=== PATIENT | male | born 1995 | race Caucasian/White ===

== ENCOUNTER 2018-04-11 23:36 | Observation (INO) | payer OTHER ==
--- NOTE | 2018-04-12 00:09 | ER Document Report ---
ED Medical Screen (RME) - General Chief Complaint: Possible Overdose Stated Complaint: ACCIDENTAL OVERDOSE Time Seen by Provider: 04/12/18 00:03 Notes: Patient presents for accidental overdose on oxycodone. 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 He states that he had been prescribed 30 mg oxycodone's approximately 3 years ago. Due to the pain he has been experiencing he states that he took a quarter of a pill earlier tonight and states that it helped with his back pain but not completely so approximately between 10 and 1030 he had taken half of a 30 mg pill. His significant other states that after he took it approximately 10 minutes had elapsed she walked back into the room he was slumped over in the chair with his eyes rolled back of his head and was hicks colored and wheezing. Her mother begin CPR with chest compressions and assisted breathing. Once EMS came they provided him 2 mg of Narcan and he became awake and oriented. He states that he has mild chest tenderness and states that he has been coughing up some blood and mucus when he awoke. Denies any medical problems does not take any medications on a daily basis. He denies trying to hurt himself and adamantly states he does not take narcotics on a daily basis and does not like taking medications. Of note, he is unsure whether the medication that he takes is extended release or not. I have greeted and performed a rapid initial assessment of this patient. A comprehensive ED assessment and evaluation of the patient, analysis of test results and completion of the medical decision making process will be conducted by additional ED providers. PHYSICAL EXAMINATION: GENERAL: Well-appearing, well-nourished and in no acute distress. HEAD: Atraumatic, normocephalic. EYES: Pupils equal round extraocular movements intact, conjunctiva are normal. ENT: Nares patent NECK: Normal range of motion LUNGS: No respiratory distress Musculoskeletal: Normal range of motion, mild TTP R anterior chest wall, no crepitus NEUROLOGICAL: Normal speech, normal gait. PSYCH: Normal mood, normal affect. SKIN: Warm, Dry, normal turgor, no rashes or lesions noted. - Related Data Allergies/Adverse Reactions: No Known Allergies Allergy (Verified 04/11/18 23:39) Physical Exam - Vital signs Vitals: Temp Pulse Resp BP Pulse Ox 98.6 F 108 H 24 H 136/72 H 93 04/11/18 23:44 04/11/18 23:44 04/11/18 23:44 04/11/18 23:44 04/11/18 23:44 Course - Vital Signs Vital signs: Temp Pulse Resp BP Pulse Ox 98.6 F 108 H 24 H 136/72 H 93 04/11/18 23:44 04/11/18 23:44 04/11/18 23:44 04/11/18 23:44 04/11/18 23:44
--- NOTE | 2018-04-12 00:56 | RADIOLOGY REPORT (SQ) ---
EXAM DESCRIPTION: XR CHEST 2 VIEWS COMPLETED DATE/TME: 04/12/2018 00:18 CLINICAL HISTORY: 22 years Male, bloody sputum, s/p chest compressions COMPARISON: None. FINDINGS: Adequate lung volume, mild/moderate mixed interstitial and airspace opacity, normal cardiac silhouette, and intact bony thorax. IMPRESSION: Moderate mixed interstitial and airpace opacities. Differential diagnosis includes pulmonary edema, multifocal pneumonia, and chronic interstitial lung disease.
--- NOTE | 2018-04-12 01:06 | ER Document Report ---
ED General - General Chief Complaint: Possible Overdose Stated Complaint: ACCIDENTAL OVERDOSE Time Seen by Provider: 04/12/18 00:03 Notes: Patient is a 22-year-old male who presents with complaint of accidental opiate overdose. Patient says he has some chronic back pain. He says usually does not take opiates. He had some opiates of the lower from X in the long time ago. He had hurt his back about 2 and half years ago. Recently he has been having "heavy stuff at work is back's been hurting him and therefore he decided to take 1 of his oxycodone. The oxycodone 30 mg tablets. He says he initially took a quarter of a pill and he continued to hurt and therefore he took half a pill. After this he became apneic and stopped breathing and paramedics were called and they gave him Narcan. He then came to the hospital. Says he has some mild shortness of breath. He said he spit up a small amount of blood. No vomiting of blood. He did vomit twice without any bloody emesis. No abdominal pain. No chest pain. No weakness or numbness into his legs other than some mild numbness that he had into his toes when he first woke up but that since resolved. No loss of bowel control. No urinary retention. - Related Data Allergies/Adverse Reactions: No Known Allergies Allergy (Verified 04/11/18 23:39) Past Medical History - Social History Smoking Status: Unknown if Ever Smoked Frequency of alcohol use: None Drug Abuse: None Family History: Reviewed & Not Pertinent Review of Systems - Review of Systems Notes: My Normal Review Basic REVIEW OF SYSTEMS: CONSTITUTIONAL : Denies fever, chills, or sweats. Denies recent illness. CARDIOVASCULAR: Denies chest pain. RESPIRATORY: Became apneic GASTROINTESTINAL: Denies abdominal pain. Some vomiting after Narcan MUSCULOSKELETAL: Denies neck or back pain or joint pain or swelling. SKIN: Denies rash or skin lesions. HEMATOLOGIC : Denies easy bruising or bleeding. NEUROLOGICAL: Denies altered mental status or loss of consciousness. Denies headache. Denies weakness or paralysis or loss of use of either side. Denies problems with gait or speech. Denies sensory or motor loss. ALL OTHER SYSTEMS REVIEWED AND NEGATIVE. Physical Exam - Vital signs Vitals: Temp Pulse Resp BP Pulse Ox 98.6 F 108 H 24 H 136/72 H 93 08/18/18 23:44 04/11/18 23:44 04/11/18 23:44 04/11/18 23:44 04/11/18 23:44 - Notes Notes: General Appearance: Well nourished, alert, cooperative, no acute distress, no obvious discomfort. Vitals: reviewed, See vital signs table. Head: no swelling or tenderness to the head Eyes: PERRL, EOMI, Conjuctiva clear Mouth: No decreasd moisture Lungs: No wheezing, No rales, No rhonci, No accessory muscle use, good air exchange bilaterally. Heart: Normal rate, Regular rythm, No murmur, no rub Back: Mild thoracic paraspinal tenderness to palpation around level T5-T7. Abdomen: Normal BS, soft, No rigidity, No abdominal tenderness, No guarding, no rebound, no abdominal masses, no organomegaly Extremities: strength 5/5 in all extremities, good pulses in all extremities, no swelling or tenderness in the extremities, no edema. Skin: warm, dry, appropriate color, no rash Neuro: speech clear, oriented x 3, normal affect, responds appropriately to questions. Distal sensation intact. Patient has good strength with plantar dorsiflexion in both feet. He is able lift both legs off the bed against gravity without any difficulty. Course - Re-evaluation Re-evalutation: 04/12/18 01:06 Patient's chest x-ray does show some signs of pulmonary edema. I therefore the patient observed. His oxygen saturation currently is 95% on room air. 04/12/18 02:22 Patient is a 2 saturations when is awake around 92-94%. When these asleep he did start to desaturate some. He does easily arouse. His pupils are still normal. I will place him on some oxygen. I did this into his lungs again and I do not hear significant rales despite there being some pulmonary edema on the chest x-ray. I will keep him on nasal cannula. I am awaiting hear back from the hospitalist problems. 04/12/18 06:[address] Charles who agreed to admit the patient. Dictation of this chart was performed using voice recognition software; therefore, there may be some unintended grammatical errors. - Vital Signs Vital signs: Temp Pulse Resp BP Pulse Ox 98.5 F 83 20 131/67 H 98 04/12/18 05:45 04/12/18 05:45 04/12/18 05:45 04/12/18 05:45 04/12/18 05:45 - Laboratory Result Diagrams: 04/12/18 05:40 04/12/18 01:05 Laboratory results interpreted by me: 04/12/18 01:05 WBC 15.7 H Seg Neutrophils % 86.3 H Lymphocytes % 8.5 L Absolute Neutrophils 13.5 H Discharge - Discharge Clinical Impression: Pulmonary vascular congestion Opiate overdose Qualifiers: Encounter type: initial encounter Injury intent: accidental or unintentional Qualified Code(s): T40.601A - Poisoning by unspecified narcotics, accidental ( unintentional), initial encounter Condition: Stable Disposition: ADMITTED OBSERVATION Unit Admitted: Telemetry
[2018-04-12 01:14] LABS: ABSOLUTE LYMPHOCYTES (AUTO) 1.3 10^3/uL (0.5-4.7); ABSOLUTE MONOCYTES (AUTO) 0.8 10^3/uL (0.1-1.4); ABSOLUTE NEUT (AUTO) 13.5 10^3/uL (1.7-8.2); BASOPHILS % (AUTO) 0.2 % (0-2); EOSINOPHILS % (AUTO) 0.1 % (0-6); HEMATOCRIT 42.6 % (37.9-51.0); LYMPHOCYTES % (AUTO) 8.5 % (13-45); MEAN CORPUSCULAR HGB CONC 35.2 g/dL (32.0-36.0); MEAN CORPUSCULAR VOLUME 88 fl (80-97); MONOCYTES % (AUTO) 4.9 % (3-13); PLATELET COUNT 205 10^3/uL (150-450); RED BLOOD COUNT 4.84 10^6/uL (4.35-5.55); SEGMENTED NEUTROPHILS % (AUTO) 86.3 % (42-78); TOTAL CELLS COUNTED % (AUTO) 100 %; WHITE BLOOD COUNT 15.7 10^3/uL (4.0-10.5)
[2018-04-12 01:27] LABS: ANION GAP 11 (5-19); BLOOD UREA NITROGEN 14 mg/dL (7-20); CALCIUM 9.4 mg/dL (8.4-10.2); CARBON DIOXIDE 26 mmol/L (22-30); CHLORIDE 102 mmol/L (98-107); GLUCOSE 99 mg/dL (75-110); POTASSIUM 4.2 mmol/L (3.6-5.0); SODIUM 139.4 mmol/L (137-145)
[2018-04-12] MEDS ORDERED: ACETAMINOPHEN 325 MG TABLET PO PRN (02:30)
[2018-04-12] MEDS ORDERED: IPRATROPIUM/ALBUTEROL 0.5-2.5 MG/3 ML AMPUL NEB PRN (02:30)
[2018-04-12] MEDS ORDERED: KETOROLAC TROMETHAMINE INJ/PF 30 MG/1 ML SDV IV PRN (02:33)
--- NOTE | 2018-04-12 05:14 | PDOC H&P ---
History of Present Illness Admission Date/PCP: 04/12/18 02:45 Patient complains of: Accidental overdose History of Present Illness: SHIRA ZAMBRANO is a 22 year old male with past medical history of chronic back pain who presents following an acute exacerbation of his back pain prompting him to take an oxycodone from previous remote prescription. Patient admits to consuming half a tablet resulting in altered mental status and respiratory depression, EMS was called receiving Narcan with resolution of symptoms however in the emergency room he has developed several episodes of hypoxia requiring oxygen concerning for pulmonary edema. Patient otherwise denies recreational drug use or medication use on a regular basis. He denies chest pain palpitations nausea vomiting. He denies previous episode. Past Medical History Medical History: None Social History Information Source: Patient Smoking Status: Current Some Day Smoker Frequency of Alcohol Use: Social Drugs: None - Advance Directive Resuscitation Status: Full Code Family History Family History: Hypertension Parental Family History Reviewed: Yes Children Family History Reviewed: Yes Sibling(s) Family History Reviewed.: Yes Medication/Allergy Allergies/Adverse Reactions: No Known Allergies Allergy (Verified 04/11/18 23:39) Review of Systems Constitutional: ABSENT: chills, fever(s), headache(s), weight gain, weight loss Eyes: ABSENT: visual disturbances Ears: ABSENT: hearing changes Cardiovascular: ABSENT: chest pain, dyspnea on exertion, edema, orthropnea, palpitations Respiratory: ABSENT: cough, hemoptysis Gastrointestinal: ABSENT: abdominal pain, constipation, diarrhea, hematemesis, hematochezia, nausea, vomiting Genitourinary: ABSENT: dysuria, hematuria Musculoskeletal: ABSENT: joint swelling Integumentary: ABSENT: rash, wounds Neurological: ABSENT: abnormal gait, abnormal speech, confusion, dizziness, focal weakness, syncope Psychiatric: ABSENT: anxiety, depression, homidical ideation, suicidal ideation Endocrine: ABSENT: cold intolerance, heat intolerance, polydipsia, polyuria Hematologic/Lymphatic: ABSENT: easy bleeding, easy bruising Physical Exam Vital Signs: Temp Pulse Resp BP Pulse Ox 98.6 F 108 H 18 113/58 L 96 04/11/18 23:44 04/11/18 23:44 04/12/18 03:01 04/12/18 03:01 04/12/18 03:01 General appearance: PRESENT: no acute distress, cooperative, well-developed, well-nourished. ABSENT: disheveled Head exam: PRESENT: atraumatic, normocephalic Eye exam: PRESENT: conjunctiva pink, EOMI, PERRLA. ABSENT: scleral icterus Ear exam: PRESENT: normal external ear exam Mouth exam: PRESENT: moist, tongue midline Neck exam: ABSENT: carotid bruit, JVD, lymphadenopathy, thyromegaly Respiratory exam: PRESENT: crackles, tachypnea. ABSENT: rales, rhonchi, wheezes Cardiovascular exam: PRESENT: RRR. ABSENT: diastolic murmur, rubs, systolic murmur Pulses: PRESENT: normal dorsalis pedis pul Vascular exam: PRESENT: normal capillary refill GI/Abdominal exam: PRESENT: normal bowel sounds, soft. ABSENT: distended, guarding, mass, organolmegaly, rebound, tenderness Rectal exam: PRESENT: deferred Extremities exam: PRESENT: full ROM. ABSENT: calf tenderness, clubbing, pedal edema Neurological exam: PRESENT: alert, awake, oriented to person, oriented to place , oriented to time, oriented to situation, CN II-XII grossly intact. ABSENT: motor sensory deficit Psychiatric exam: PRESENT: appropriate affect, normal mood. ABSENT: homicidal ideation, suicidal ideation Skin exam: PRESENT: dry, intact, warm. ABSENT: cyanosis, rash Results Impressions: Chest X-Ray 04/12/18 00:18 IMPRESSION: Moderate mixed interstitial and airpace opacities. Differential diagnosis includes pulmonary edema, multifocal pneumonia, and chronic interstitial lung disease. Assessment & Plan - Diagnosis (1) Opiate overdose Qualifiers: Encounter type: initial encounter Injury intent: accidental or unintentional Qualified Code(s): T40.601A - Poisoning by unspecified narcotics , accidental (unintentional), initial encounter Is this a current diagnosis for this admission?: Yes Plan: Accidental overdose without intention for self-harm, education and supportive care (2) Pulmonary vascular congestion Is this a current diagnosis for this admission?: Yes Plan: Likely secondary to Narcan reversal of opiate resulting in pulmonary edema. Supportive care oxygen as needed BiPAP - Time Time Spent: 30 to 50 Minutes - Inpatient Certification Medical Necessity: Need Close Monitoring Due to Risk of Patient Decompensation
[2018-04-12 05:54] LABS: ABSOLUTE LYMPHOCYTES (AUTO) 1.7 10^3/uL (0.5-4.7); ABSOLUTE MONOCYTES (AUTO) 0.8 10^3/uL (0.1-1.4); ABSOLUTE NEUT (AUTO) 10.1 10^3/uL (1.7-8.2); BASOPHILS % (AUTO) 0.3 % (0-2); EOSINOPHILS % (AUTO) 0.2 % (0-6); HEMATOCRIT 40.6 % (37.9-51.0); HEMOGLOBIN 14.5 g/dL (13.5-17.0); LYMPHOCYTES % (AUTO) 13.3 % (13-45); MEAN CORPUSCULAR HEMOGLOBIN 31.3 pg (27.0-33.4); MEAN CORPUSCULAR HGB CONC 35.6 g/dL (32.0-36.0); MEAN CORPUSCULAR VOLUME 88 fl (80-97); MONOCYTES % (AUTO) 6.2 % (3-13); PLATELET COUNT 204 10^3/uL (150-450); RED BLOOD COUNT 4.61 10^6/uL (4.35-5.55); RED CELL DISTRIBUTION WIDTH 14.3 % (11.5-14.0); TOTAL CELLS COUNTED % (AUTO) 100 %; WHITE BLOOD COUNT 12.7 10^3/uL (4.0-10.5)
[2018-04-12 06:11] LABS: URINE AMPHETAMINES SCREEN NEGATIVE; URINE BARBITURATES SCREEN NEGATIVE; URINE BENZODIAZEPINES SCREEN NEGATIVE; URINE COCAINE SCREEN NEGATIVE; URINE MARIJUANA (THC) SCREEN NEGATIVE; URINE METHADONE SCREEN NEGATIVE; URINE PHENCYCLIDINE SCREEN NEGATIVE
[2018-04-12] MEDS: HEPARIN SOD (PORCINE) 5,000 UNIT/ML 1 ML SYRINGE SUBCUT SCH ×3 (06:34→21:59)
--- NOTE | 2018-04-12 17:07 | Progress Note ---
Provider Note Provider Note: Patient admitted early this morning. Please see initial H&P for full assessment and plan. I did go and see patient on rounds this morning. He tells me that during his EMS ride he did cough up some blood which was bright red in color. I went ahead and ordered a CT of the chest to rule out any PE. Otherwise patient is doing well and wants to be discharged. I told him that let us look at the CTA of the chest and if that looks good and he may be discharged later this afternoon.
--- NOTE | 2018-04-12 17:15 | RADIOLOGY REPORT (SQ) ---
EXAM DESCRIPTION: CTA CHEST COMPLETED DATE/TIME: 04/12/2018 1:07 pm REASON FOR STUDY: hemopysis COMPARISON: None. TECHNIQUE: CT scan of the chest performed using helical scanning technique with dynamic intravenous contrast injection. Images reviewed with lung, soft tissue and bone windows. Reconstructed coronal and sagittal MPR images reviewed. Additional 3 dimensional post-processing performed to develop Maximal Intensity Projection images (RI P). All images stored on PACS. All CT scanners at this facility use dose modulation, iterative reconstruction, and/or weight based d osing when appropriate to reduce radiation dose to as low as reasonably achievable (ALARA). [facility]: Dose Right [facility]: CareDose [facility]: Dose Right [facility]: Teradose 4D [facility]: [employer] CONTRAST TYPE AND DOSE: contrast/concentration: Isovue 350.00 mg/ml; Total Contrast Delivered: 88.0 ml; Total Saline Delivered: 101.0 ml Contrast bolus optimized for the pulmonary arteries. Not diagnostic for the aorta. RENAL FUNCTION: None required. The patient is less than 50 years old. RADIATION DOSE: CT Rad equipment meets quality standard of care and radiation dose reduction techniq ues were employed. CTDIvol: 19.8 - 24.6 mGy. DLP: 971 mGy-cm. . LIMITATIONS: None. FINDINGS: LUNGS AND PLEURA: Diffuse ground-glass opacities in the upper lobes. No effusions. No pn eumothorax. AORTA AND GREAT VESSELS: No aneurysm. Contrast bolus not optimized for the aorta. HEART: No pericardial effusion. No significant coronary artery calcifications. PULMONARY ARTERIES: No emboli visualized in the main pulmonary arteries or the segmental branches. HILAR AND MEDIASTINAL STRUCTURES: No identified masses or abnormal nodes. HARDWARE: None in the chest. UPPER ABDOMEN: No significant findings. Limited exam. THYROID AND OTHER SOFT TISSUES: No masses. No adenopathy. BONES: No acute or significant finding. 3D MIPS: Confirm above findings. OTHER: No other significant finding. IMPRESSION: Diffuse ground-glass opacities predominantly in the upper lobe suspicious for in infecti on or inflammatory process. No pulmonary emboli. COMMENT: Quality ID # [id number]: Final reports with documentation of one or more dose reduction techniques (e.g., Automated exposure control, adjustment of the mA and/or kV according to patient size, use of iterative reconstruction technique) TECHNICAL DOCUMENTATION: JOB ID: [id number] [employer]- All Rights Reserved Reading location - IP/workstation name: [email or web address]
[2018-04-13] MEDS: HEPARIN SOD (PORCINE) 5,000 UNIT/ML 1 ML SYRINGE SUBCUT SCH ×2 (05:16→13:39)
[2018-04-13 06:36] LABS: ABSOLUTE EOSINOPHILS # (AUTO) 0.1 10^3/uL (0.0-0.6); ABSOLUTE LYMPHOCYTES (AUTO) 2.4 10^3/uL (0.5-4.7); ABSOLUTE MONOCYTES (AUTO) 0.5 10^3/uL (0.1-1.4); ABSOLUTE NEUT (AUTO) 3.7 10^3/uL (1.7-8.2); BASOPHILS % (AUTO) 0.3 % (0-2); EOSINOPHILS % (AUTO) 1.3 % (0-6); HEMATOCRIT 39.5 % (37.9-51.0); HEMOGLOBIN 14.2 g/dL (13.5-17.0); LYMPHOCYTES % (AUTO) 35.7 % (13-45); MEAN CORPUSCULAR HEMOGLOBIN 31.5 pg (27.0-33.4); MEAN CORPUSCULAR HGB CONC 35.8 g/dL (32.0-36.0); MEAN CORPUSCULAR VOLUME 88 fl (80-97); PLATELET COUNT 179 10^3/uL (150-450); RED BLOOD COUNT 4.49 10^6/uL (4.35-5.55); RED CELL DISTRIBUTION WIDTH 14.3 % (11.5-14.0); SEGMENTED NEUTROPHILS % (AUTO) 55.7 % (42-78); TOTAL CELLS COUNTED % (AUTO) 100 %; WHITE BLOOD COUNT 6.7 10^3/uL (4.0-10.5)
--- NOTE | 2018-04-13 08:13 | Physician Advisory Note ---
Physician Advisor ProgressNote .: Pursuant to the plan for [facility], I have reviewed the medical record for this patient. Physician Advisor Statement: Nice documentation of accidental Opiate OD, acute pulmonary edema, hypoxemia. Please consider documenting, if you agree: 1. "Acute Toxic encephalopathy due to opioid OD" 2. "Adverse effect of Narcan, producing acute pulmonary edema" Thanks! CK
[2018-04-13 13:34] VITALS: BP 109/54
--- NOTE | 2018-04-15 11:35 | PDOC DISCHARGE SUMMARY ---
General - Admit/Disc Date/PCP Admission Date/Primary Care Provider: 04/12/18 02:45 Discharge Date: 04/13/18 - Discharge Diagnosis (1) Opiate overdose Is this a current diagnosis for this admission?: Yes (2) Pulmonary vascular congestion Is this a current diagnosis for this admission?: Yes (3) Adverse effects of medication Is this a current diagnosis for this admission?: Yes - Additional Information Resuscitation Status: Full Code Discharge Diet: Regular Discharge Activity: Activity As Tolerated Home Medications: Acetaminophen [Tylenol 325 mg Tablet] 650 mg PO Q4HP PRN tablet 04/13/18 History of Present Illness History of Present Illness: Per H&P by Dr. Charles: SHIRA ZAMBRANO is a 22 year old male with past medical history of chronic back pain who presents following an acute exacerbation of his back pain prompting him to take an oxycodone from previous remote prescription. Patient admits to consuming half a tablet resulting in altered mental status and respiratory depression, EMS was called receiving Narcan with resolution of symptoms however in the emergency room he has developed several episodes of hypoxia requiring oxygen concerning for pulmonary edema. Patient otherwise denies recreational drug use or medication use on a regular basis. He denies chest pain palpitations nausea vomiting. He denies previous episode. Hospital Course Hospital Course: The patient expeienced an accidental overdose of opiate medication; EMS responded and administered Narcan. The patient was then observed to have intermittent episodes of hypoxia . Exam and chest xray revealed pulmonary edema , likely as an adverse reaction to Narcan. The patient was supported with supplemental oxygen; BiPAP was available but not required by the patient. He reported hemoptysis while in the ambulance; none observed by nursing. A CTA was obtained and did rule out PE. CTA demonstrated groundglass opacities of the bilateral upper lobes; likely inflammatory related to recent Narcan use and subsequent pulmonary edema. He was observed overnight with no further complaints of dyspnea, chest discomfort, cough, or hemoptysis. His symptoms subsequently resolved and he was discharged to home in stable condition. Physical Exam Vital Signs: Temp Pulse Resp BP Pulse Ox 98.2 F 75 14 109/54 L 100 04/13/18 13:32 04/13/18 13:32 04/13/18 13:32 04/13/18 13:32 04/13/18 13:32 General appearance: PRESENT: no acute distress, well-developed, well-nourished Head exam: PRESENT: atraumatic, normocephalic Eye exam: PRESENT: conjunctiva pink, EOMI, PERRLA. ABSENT: scleral icterus Ear exam: PRESENT: normal external ear exam Mouth exam: PRESENT: moist, tongue midline Neck exam: ABSENT: carotid bruit, JVD, lymphadenopathy, thyromegaly Respiratory exam: PRESENT: clear to auscultation josee. ABSENT: rales, rhonchi, wheezes Cardiovascular exam: PRESENT: RRR. ABSENT: diastolic murmur, rubs, systolic murmur Pulses: PRESENT: normal dorsalis pedis pul Vascular exam: PRESENT: normal capillary refill GI/Abdominal exam: PRESENT: normal bowel sounds, soft. ABSENT: distended, guarding, mass, organolmegaly, rebound, tenderness Rectal exam: PRESENT: deferred Extremities exam: PRESENT: full ROM. ABSENT: calf tenderness, clubbing, pedal edema Neurological exam: PRESENT: alert, awake, oriented to person, oriented to place , oriented to time, oriented to situation, CN II-XII grossly intact. ABSENT: motor sensory deficit Psychiatric exam: PRESENT: appropriate affect, normal mood. ABSENT: homicidal ideation, suicidal ideation Skin exam: PRESENT: dry, intact, warm. ABSENT: cyanosis, rash Results Laboratory Results: 04/13/18 05:22 Impressions: Chest/Abdomen CTA 04/12/18 00:00 IMPRESSION: Diffuse ground-glass opacities predominantly in the upper lobe suspicious for in infection or inflammatory process. No pulmonary emboli. Chest X-Ray 04/12/18 00:18 IMPRESSION: Moderate mixed interstitial and airpace opacities. Differential diagnosis includes pulmonary edema, multifocal pneumonia, and chronic interstitial lung disease. Qualifiers - * PATIENT BEING DISCHARGED WITH ANY OF THE FOLLOWING DIAGNOSIS: No Plan Discharge Plan: Discharge to home. Follow up with PCP within 1 week. Time Spent: Less than 30 Minutes
== END 2018-04-13 13:49 | disposition home or self-care (01) ==
LOC: ER 23:36 → EH 04-12 02:45 → 5 04-12 05:36
PROVIDERS: ADMIT Internal Medicine; ATTEND Internal Medicine
DX: T40.2X1A Poisoning by other opioids, accidental (unintentional), initial encounter (principal); R41.82 Altered mental status, unspecified; R06.03 Acute respiratory distress; R09.89 Other specified symptoms and signs involving the circulatory and respiratory systems; R09.02 Hypoxemia; J81.1 Chronic pulmonary edema; R20.0 Anesthesia of skin; R06.81 Apnea, not elsewhere classified; R04.2 Hemoptysis; G89.29 Other chronic pain; M54.5 Low back pain; Z82.49 Family history of ischemic heart disease and other diseases of the circulatory system
CPT/HCPCS: 36415; 71046; 71275; 80048; 80307; 83880; 85025; 99285